=== PATIENT | male | born 2000 | race Two or more races ===

== ENCOUNTER 2022-05-10 11:02 | Emergency (ER) | payer OTHER ==
[~2022-05-10] VITALS: Ht 170.2 cm; Wt 53.1 kg
== END 2022-05-10 15:02 | disposition home or self-care (01) ==
LOC: ER 11:02
DX: B34.9 Viral infection, unspecified (principal); Z20.822 Contact with and (suspected) exposure to COVID-19

== ENCOUNTER 2023-10-26 12:13 | Inpatient (IN) | payer OTHER ==
[~2023-10-26] VITALS: Ht 170.2 cm; Wt 44.9 kg
[2023-10-26] MEDS ORDERED: ONDANSETRON HCL 2 MG/ML VIAL IV ONE (15:00)
[2023-10-26] MEDS ORDERED: 0.9 % SODIUM CHLORIDE 1,000 ML IV ONE (15:00)
[2023-10-26] MEDS ORDERED: FAMOTIDINE/PF 20 MG/2 ML VIAL IV ONE (15:00)
[2023-10-26 15:43] LABS: HEMATOCRIT 50.8 % (39.0-48.0); MEAN CELL VOLUME 83.1 fL (80.0-100.00); MEAN CORPUSCULAR HEMOGLOBIN 27.8 pg (27.00-32.0); MEAN CORPUSCULAR HGB CONC 33.5 g/dl (32.0-36.0); PLATELET COUNT 328 K/uL (150-450); RED BLOOD COUNT 6.11 M/uL (4.00-6.00); RED CELL DISTRIBUTION WIDTH 12.8 % (11.5-14.5)
[2023-10-26 16:59] LABS: ALBUMIN 4.6 gm/dL (3.4-5.0); BILIRUBIN TOTAL 0.55 mg/dL (0.3-1.2); CALCIUM 10.1 mg/dL (8.5-10.1); CREATININE SERUM 1.1 mg/dL (0.70-1.30); GFR 83.71; GLOBULINA 4.1 G/DL (2.4-3.5); POTASSIUM 5.8 mEq/L (3.5-5.1); TOTAL PROTEIN 8.7 gm/dL (6.4-8.2)
[2023-10-26 17:18] LABS: ABG PH 7.177 (7.35-7.45)
[2023-10-26 17:19] LABS: ABG PO2 121.6 mmHg (80-100); ABG pCO2 19.8 mmHg (35-45); BASE EXCESS -19.1 mmol/l; BICARBONATE 7.2 mmol/l (23-25); SaO2 96.9 %; Tco2 7.8 mmol/l; o2 21 %
[2023-10-26 17:20] LABS: allen test SATISFACTORY; puncture site RADIAL RIGHT
[2023-10-26] MEDS ORDERED: INSULIN REGULAR, HUMAN 100 UNITS in 0.9 % SODIUM CHLORIDE 100 ML IV SCH (17:30)
[2023-10-26] MEDS ORDERED: DEXTROSE 50 % IN WATER 0.5 G/ML DISP.SYRIN IV PRN (17:30)
[2023-10-26] MEDS ORDERED: 0.9 % SODIUM CHLORIDE 1,000 ML IV SCH ×2 (17:30→19:30)
[2023-10-26] MEDS ORDERED: INSULIN LISPRO 1,000 UNIT/10 ML UNITS SUBCUTANEO PRN (17:30)
[2023-10-26] MEDS ORDERED: SODIUM BICARBONATE 1 MEQ/ML DISP.SYRIN 50ML IV ONE (17:30)
[2023-10-26 17:34] LABS: URINE APPEARANCE Clear; URINE BILIRRUBIN Negative (NEGATIVE); URINE BLOOD Negative; URINE COLOR Yellow; URINE LEUKOCYTE Negative; URINE NITRATE Negative; URINE PROTEIN Trace (NEGATIVE); URINE UROBILINOGEN 0.2 E.U./dl
[2023-10-26 17:50] LABS: URINE BACTERIA 2.5 uL (0.0-1933); URINE EPITHELIAL CELLS 0.6 uL (0.0-38.8); URINE GLUCOSE >=1000 MG/DL (NEGATIVE); URINE RBC 0.2 uL (0.0-20.8); URINE WBC 0.9 uL (0.0-23.2)
[2023-10-26 18:48] LABS: ABG PH 7.267 (7.35-7.45); ABG PO2 179.3 mmHg (80-100); ABG pCO2 21.6 mmHg (35-45); BASE EXCESS -15.1 mmol/l; BICARBONATE 9.6 mmol/l (23-25); SaO2 99.2 %; Tco2 10.3 mmol/l
[2023-10-26 18:49] LABS: allen test SATISFACTORY; o2 24 %; puncture site RADIAL LEFT
[2023-10-26] MEDS ORDERED: FAMOTIDINE/PF 20 MG in 0.9 % SODIUM CHLORIDE 8 ML IV PUSH SCH (19:29)
[2023-10-26] MEDS ORDERED: ACETAMINOPHEN 500 MG GEL..CAP PO PRN (19:30)
[2023-10-26] MEDS ORDERED: ONDANSETRON HCL 4 MG in 0.9 % SODIUM CHLORIDE 50 ML IV PRN (19:30)
[2023-10-26 19:50] LABS: CALCIUM 8.1 mg/dL (8.5-10.1); CREATININE SERUM 0.95 mg/dL (0.70-1.30); GFR 99.13; POTASSIUM 4.59 mEq/L (3.5-5.1)
[2023-10-26] MEDS ORDERED: CITRIC ACID/SODIUM CITRATE 30 ML BLIST.PACK PO ONE (20:15)
[2023-10-26 20:30] LABS: CREATININE SERUM 0.87 mg/dL (0.70-1.30); GFR 109.73; INR 1.17; PARTIAL THROMBOPLASTIN TIME 25.9 SECONDS (22.0-34.0); PHOSPHOROUS 2.3 mg/dL (2.5-4.9); POTASSIUM 4.09 mEq/L (3.5-5.1); PROTHROMBIN TIME 12.1 SECONDS (9.0-11.5)
[2023-10-26 21:29] LABS: ABG PO2 112.5 mmHg (80-100); ABG pCO2 28.4 mmHg (35-45)
[2023-10-26 21:30] LABS: BASE EXCESS -8.1 mmol/l; BICARBONATE 15.7 mmol/l (23-25); Tco2 16.5 mmol/l; allen test SATISFACTORY; o2 21 %; puncture site RADIAL LEFT
[2023-10-26] MEDS ORDERED: POTASSIUM CHLORIDE IV SCH (22:30)
[2023-10-26] MEDS ORDERED: SODIUM CHLORIDE IV SCH (22:30)
[2023-10-26] MEDS ORDERED: DEXTROSE IV SCH (22:30)
[2023-10-27 00:54] LABS: CALCIUM 8.5 mg/dL (8.5-10.1); CREATININE SERUM 0.84 mg/dL (0.70-1.30); GFR 114.26; POTASSIUM 3.65 mEq/L (3.5-5.1)
[2023-10-27 04:26] LABS: CALCIUM 8.6 mg/dL (8.5-10.1); CREATININE SERUM 0.76 mg/dL (0.70-1.30); GFR 128.25; POTASSIUM 3.38 mEq/L (3.5-5.1)
[2023-10-27] MEDS ORDERED: POTASSIUM CHLORIDE/D5-0.9%NACL 1,000 ML IV SCH (06:30)
[2023-10-27] MEDS ORDERED: 0.9 % SODIUM CHLORIDE 1,000 ML IV SCH (08:30)
[2023-10-27] MEDS ORDERED: CEFTRIAXONE SODIUM 2,000 MG in 0.9 % SODIUM CHLORIDE 100 ML IV SCH (09:00)
[2023-10-27] MEDS ORDERED: INSULIN LISPRO 1,000 UNIT/10 ML UNITS SUBCUTANEO SCH ×2 (09:00→12:00)
[2023-10-27] MEDS ORDERED: INSULIN NPH HUMAN ISOPHANE 1,000 UNITS/10 ML UNITS SUBCUTANEO STA (09:24)
[2023-10-27 09:26] LABS: CALCIUM 8.3 mg/dL (8.5-10.1); CREATININE SERUM 0.65 mg/dL (0.70-1.30); GFR 153.61; POTASSIUM 3.73 mEq/L (3.5-5.1)
[2023-10-27] MEDS ORDERED: INSULIN LISPRO 1,000 UNIT/10 ML UNITS SUBCUTANEO PRN (09:30)
[2023-10-27] MEDS ORDERED: DEXTROSE 50 % IN WATER 0.5 G/ML DISP.SYRIN IV PRN (09:30)
[2023-10-27] MEDS ORDERED: SODIUM CHLORIDE 0.45 % 1,000 ML IV SCH (10:15)
[2023-10-27 10:23] LABS: HEMOGLOBIN 14.3 g/dL (13-16.00); MEAN CELL VOLUME 80.4 fL (80.0-100.00); MEAN CORPUSCULAR HEMOGLOBIN 27.4 pg (27.00-32.0); MEAN CORPUSCULAR HGB CONC 34.1 g/dl (32.0-36.0); PLATELET COUNT 284 K/uL (150-450); RED BLOOD COUNT 5.23 M/uL (4.00-6.00); RED CELL DISTRIBUTION WIDTH 13.2 % (11.5-14.5)
[2023-10-27] MEDS ORDERED: INSULIN GLARGINE,HUM.REC.ANLOG 1,000 UNITS/10 ML UNITS SUBCUTANEO SCH (21:00)
[2023-10-28] MEDS ORDERED: INSULIN LISPRO 1,000 UNIT/10 ML UNITS SUBCUTANEO SCH (08:00)
[2023-10-28] MEDS ORDERED: INSULIN NPH HUMAN ISOPHANE 1,000 UNITS/10 ML UNITS SUBCUTANEO SCH (08:00)
[2023-10-28 11:56] LABS: HEMATOCRIT 39.2 % (39.0-48.0); HEMOGLOBIN 13.7 g/dL (13-16.00); MEAN CORPUSCULAR HEMOGLOBIN 27.9 pg (27.00-32.0); MEAN CORPUSCULAR HGB CONC 34.8 g/dl (32.0-36.0); PLATELET COUNT 237 K/uL (150-450); RED BLOOD COUNT 4.91 M/uL (4.00-6.00); RED CELL DISTRIBUTION WIDTH 13.2 % (11.5-14.5)
[2023-10-28 12:43] LABS: CALCIUM 8.2 mg/dL (8.5-10.1); CREATININE SERUM 0.47 mg/dL (0.70-1.30); GFR 223.32; POTASSIUM 3.9 mEq/L (3.5-5.1); TSH 0.885 uIU/mL (0.358-3.74)
[2023-10-28] MEDS ORDERED: HUMULIN N100 UNIT/2 SUBCUTANEO (14:02)
[2023-10-28] MEDS ORDERED: INSULIN LI100 UNIT/1 SUBCUTANEO (14:08)
== END 2023-10-28 15:46 | disposition home or self-care (01) | DRG 638 ==
LOC: ER 12:13 → ICU-2 20:21 → MEDJ 10-27 11:54
PROVIDERS: Emergency Medicine; General Practice; Internal Medicine Endocrinology, Diabetes & Metabolism; Nurse Practitioner Family; ADMIT Internal Medicine; ATTEND Internal Medicine
DX: E11.10 Type 2 diabetes mellitus with ketoacidosis without coma (principal); E46 Unspecified protein-calorie malnutrition; Z79.4 Long term (current) use of insulin